=== PATIENT | female | born 1990 | race American Indian/Alaskan Native ===

== ENCOUNTER 2017-10-01 10:42 | Emergency (ER) | payer OTHER, BC ==
[2017-10-01 10:54] VITALS: BP 119/85
[2017-10-01] MEDS ORDERED: TORADOL IM ONE (12:31)
[2017-10-01] MEDS ORDERED: VALIUM PO ONE (12:31)
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
== END 2017-10-01 14:49 | disposition home or self-care (01) ==
LOC: ED 10:42
DX: S16.1XXA Strain of muscle, fascia and tendon at neck level, initial encounter (principal); S39.012A Strain of muscle, fascia and tendon of lower back, initial encounter; V49.49XA Driver injured in collision with other motor vehicles in traffic accident, initial encounter; Y93.89 Activity, other specified; Y92.89 Other specified places as the place of occurrence of the external cause; Y99.8 Other external cause status
CPT/HCPCS: 72040; 72100; 96372; 99283; J1885